=== PATIENT | female | born 1960 | race Caucasian/White ===

== ENCOUNTER → 2016-10-21 | Outpatient (CLI) | payer OTHER ==
[2016-10-21 13:27] LABS: BLOOD UREA NITROGEN 13 mg/dl (7-18); BUN/CREATININE RATIO 18.4 (10-20); CARBON DIOXIDE 29 mmol/L (21-32); CHLORIDE 105 mmol/L (98-107); CHOLESTEROL 248 mg/dl (0-200); GLUCOSE 87 mg/dl (70-99); SODIUM 140 mmol/L (136-145); TRIGLYCERIDES 265 mg/dl (0-150); VERY LOW DENSITY LIPOPROT CALC 53 mg/dl
[2016-10-21 13:29] LABS: CALCIUM 9.3 mg/dl (8.5-10.1)
[2016-10-21 13:31] LABS: CHOLESTEROL/HDL RATIO 5.3; HDL CHOLESTEROL 47 mg/dl; LDL CHOLESTEROL CALCULATED 148 mg/dl
== END | disposition home or self-care (01) ==
LOC: C.LABMFLN 09:35
PROVIDERS: ATTEND Family Medicine
DX: I10 Essential (primary) hypertension (principal); Z13.220 Encounter for screening for lipoid disorders

== ENCOUNTER 2017-11-14 05:04 | Inpatient (IN) | payer OTHER ==
[2017-11-06 11:34] VITALS: BMI 31.0
--- NOTE | 2017-11-06 12:12 | PAT Medication Instructions ---
Service Date November 06, 2017. Current Home Medication List Acetaminophen (Tylenol), 1,000 MG PO PRN Ibuprofen (Advil), 600 MG PO PRN Medication Instructions For Your Scheduled Surgery - Hold the following medications 10 days prior to surgery (per surgen): Ibuprofen (Advil), 600 MG PO PRN - Take the following medications the morning of surgery with a sip of water: Acetaminophen (Tylenol), 1,000 MG PO PRN (if needed, can be taken up to four hours before surgery) - Take the following medications as scheduled the night before surgery: Acetaminophen (Tylenol), 1,000 MG PO PRN (if needed) If you have any questions please call us at [phone] or [phone] or [phone]
[2017-11-06 12:41] LABS: BASO % 0.3 %; BASO ABS # 0.01 K/uL (0-0.2); EOS % 2.4 %; EOS ABS # 0.07 K/uL (0-0.5); HEMATOCRIT 41.1 % (37-47); HEMOGLOBIN 14.2 g/dL (12.0-16.0); LYMPH % 24.1 %; LYMPH ABS # 0.69 K/uL (1.2-3.4); MEAN CELL VOLUME 95.8 fL (80-100); MEAN CORPUSCULAR HEMOGLOBIN 33.1 pg (25-34); MEAN CORPUSCULAR HGB CONC 34.5 g/dl (32-36); MEAN PLATELET VOLUME 10.3 fL (7.4-10.4); MONO ABS # 0.23 K/uL (0.11-0.59); NEUT % 65.2 %; NEUT ABS # 1.86 K/uL (1.4-6.5); PLATELET COUNT 215 K/uL (130-400); RED CELL DISTRIBUTION WIDTH CV 12.4 % (11.5-14.5); RED CELL DISTRIBUTION WIDTH SD 42.9 fL (36.4-46.3); WHITE BLOOD COUNT 2.86 K/uL (4.8-10.8)
[2017-11-06 12:52] LABS: CALCIUM 9.7 mg/dl (8.5-10.1); CREATININE 0.75 mg/dl (0.60-1.20); POTASSIUM 4.3 mmol/L (3.5-5.1)
[2017-11-06 12:53] LABS: PTT PATIENT 24.4 SECONDS (21.0-31.0)
--- NOTE | 2017-11-06 13:04 | DIAGNOSTIC IMAGING REPORT ---
CHEST 2 VIEWS ROUTINE CLINICAL HISTORY: Preoperative chest. Degenerative arthritis. COMPARISON STUDY: No previous studies for comparison. FINDINGS: The cardiac and mediastinal contours are normal. There is no evidence of focal pulmonary consolidation. There is no evidence of failure. No pleural effusions are visualized.[ IMPRESSION: No active disease in the chest. Electronically signed by: Mynor Albert M.D. 11/06/2017 1:03 PM Dictated Date/Time: 11/06/2017 1:03 PM
--- NOTE | 2017-11-09 10:36 | HISTORY & PHYSICAL EXAMINATION ---
DATE OF ADMISSION: 11/14/2017 CHIEF COMPLAINT: Right knee pain. HISTORY OF PRESENT ILLNESS: A 57-year-old female from [place] who presents for treatment of her right knee. This all started back in August of this year when she was down in [place]. Not exactly sure what she did. She was playing some golf around the time and developed fairly acute onset of pain and difficulty straightening her right knee. She has seen several physicians down there; had an MRI done. She has continued to have persistent pain and discomfort. It is worse with weightbearing. She has limited motion. Cannot straighten her knee out. She is a pretty active lady and plays golf and ski's, but unable to do so due to her knee pain. She would like to have her knee fixed. PAST MEDICAL HISTORY: Skin cancer. PAST SURGICAL HISTORY: Previous surgeries include; 1. Tonsillectomy. 2. Tubal ligation. ALLERGIES: None. CURRENT MEDICATIONS: Motrin. SOCIAL HISTORY: A 57-year-old white female who lives in [place]. She is . Four children. One drink per day. FAMILY HISTORY: Significant for blood clots and skin cancer. REVIEW OF SYSTEMS: Negative for diabetes, neurologic problem, vascular problem, and bleeding disorders. No chest pain or shortness of breath. No history of DVT or PE. PHYSICAL EXAMINATION: GENERAL: Reveals a healthy, pleasant, middle-aged female. Looks in pretty good health. HEENT: Benign. NECK: Supple. No lymphadenopathy. LUNGS: Clear to auscultation. HEART: Has a regular rate and rhythm. ABDOMEN: Soft, nontender, nondistended. EXTREMITIES: Grossly neurovascularly intact except as follows: Examination of the right knee reveals the patient walks with a pretty stiff knee. She limps on this right side. She has got varus alignment to her knee. Moderate size knee effusion. Range of motion is 10-15 degrees, show full extension to about 50 degrees of flexion. She will not let me bend anymore than that. No pain with hip motion. X-RAYS: X-ray of the right knee reviewed. Shows advanced medial compartment arthritis. She has got complete loss of medial joint space. She has got osteophytes off the medial femoral condyle and medial tibial plateau. She may have a bit of a bone fragment in the intercondylar notch. MRI is reviewed from the outside. Shows significant arthritis in her knee, mostly in the medial side of the knee. Looks like she may have a loose body in the intercondylar notch area. ASSESSMENT: A 57-year-old white female with a 3-month history of markedly increased right knee pain, discomfort and limited motion, unresponsive to conservative treatment. The exact cause of her extreme stiffness is unclear per se. It may be that she has got a bone fragment stuck in her notch. In any case, just removing this is a bit unpredictable how much it is going to help her. Most definitive treatment for this patient is knee replacement. She has failed conservative care. PLAN: We will take her to the operating room and do a right total knee replacement. The risks and benefits of this procedure were explained to the patient including but not limited to DVT, PE, , infection, neurological injury, vascular injury, bleeding problem, pain, limited range of motion, stiffness, failure to relieve symptoms, incomplete relief of symptoms, need for further surgery in future, fracture, leg length inequality, nerve palsy, persistent pain, incomplete relief of symptoms, etc. The patient understands and desires to proceed. Informed consent was obtained. As far as discharge plan, she will likely be discharged home using [facility] home health program.
[2017-11-14] VITALS (11 sets, daily range): BP systolic 106–161; BP diastolic 62–97; PULSE 53–102; TEMP 36.3–36.8; O2SAT 94–99; Ht 170.2 cm; Wt 89.6 kg
[~2017-11-14] VITALS: Ht 170.2 cm; Wt 89.6 kg
[~2017-11-14 05:04] MED LIST: ACET-1256 PO; IBUP-1050 PO
[2017-11-14] MEDS ORDERED: BUPIVACAINE LIPOSOME 266 MG, BUPIVACAINE/EPINEPHRINE INJ 50 ML, SODIUM CHLORIDE 0.9% PF... INFIL SCH ×3 (06:00)
[2017-11-14] MEDS ORDERED: DEXAMETHASONE 4 MG TAB PO SCH (06:00)
[2017-11-14] MEDS ORDERED: CEFAZOLIN 2000MG IV PUSH 15 ML IV SCH (06:00)
[2017-11-14] MEDS ORDERED: LACTATED RINGER'S 1000ML IV SCH (06:00)
[2017-11-14] MEDS ORDERED: METOCLOPRAMIDE HCL 10 MG TAB PO SCH (06:00)
[2017-11-14] MEDS ORDERED: TRANEXAMIC ACID INJ 1,000 MG x 1 Bag Intra-Op IV SCH ×2 (06:00)
[2017-11-14] MEDS ORDERED: SCOPOLAMINE 1.5 MG TDSY TD SCH (06:00)
[2017-11-14] MEDS ORDERED: FAMOTIDINE 20 MG TAB PO SCH (06:00)
[2017-11-14] MEDS ORDERED: GABAPENTIN 600 MG PO SCH (06:00)
[2017-11-14] MEDS ORDERED: ACETAMINOPHEN 500 MG TAB PO SCH (06:00)
[2017-11-14] MEDS ORDERED: LACTATED RINGER'S 1000ML 500 ML IV SCH (06:00)
[2017-11-14] MEDS ORDERED: MIDAZOLAM HCL 1 MG/ML 2ML VIAL ONE ×2 (06:15→07:06)
[2017-11-14] MEDS ORDERED: FENTANYL CITRATE INJ 50 MCG/1 ML 2 ML VIAL ONE (06:16)
[2017-11-14] MEDS ORDERED: PROPOFOL IV EMULSION 10 MG/ML 20 ML VIAL ONE ×3 (06:17→08:07)
[2017-11-14] MEDS ORDERED: LIDOCAINE HCL 2% 2 ML VIAL (20MG/ML) ONE (06:17)
[2017-11-14] MEDS ORDERED: SODIUM CHLORIDE 0.9% PF 50 ML VIAL ONE (06:27)
[2017-11-14] MEDS ORDERED: BUPIVACAINE 0.25% 30 ML VIAL ONE (06:28)
[2017-11-14] MEDS ORDERED: BACITRACIN 50000 UNIT VIAL ONE (06:28)
[2017-11-14] MEDS ORDERED: BUPIVACAINE 0.5 % 5 MG/1 ML PF 10ML VIAL ONE (06:28)
[2017-11-14] MEDS ORDERED: BUPIVACAINE LIPOSOME 1/3% 266 MG/20 ML VIAL ONE (06:28)
[2017-11-14] MEDS ORDERED: EpINEphrine INJ 1MG/ML AMP 1 MG/ML AMP ONE (06:29)
--- NOTE | 2017-11-14 06:48 | History & Physical Bridge Note ---
H&P Re-Evaluation Bridge Note: I have examined the patient, reviewed the History & Physical and in the interval since the performance of the History & Physical I have noted the following changes of clinical significance: No changes noted
[2017-11-14] MEDS ORDERED: ONDANSETRON INJ 2 MG/ML 2 ML VIAL ONE (07:20)
[2017-11-14] MEDS ORDERED: DEXAMETHASONE SOD INJ 4 MG/ML VIAL ONE (07:27)
[2017-11-14] MEDS ORDERED: EpHEDrine SULFATE INJ 50 MG/ML AMP ONE (07:27)
[2017-11-14] MEDS ORDERED: EpHEDrine SULFATE INJ 50 MG/ML AMP IV PRN (07:30)
[2017-11-14] MEDS ORDERED: ATROPINE SULFATE 0.1 MG/ML 5ML SYR IV PRN (07:30)
[2017-11-14] MEDS ORDERED: FENTANYL CITRATE INJ 50 MCG/1 ML 2 ML VIAL IV PRN (07:30)
[2017-11-14] MEDS ORDERED: ONDANSETRON INJ 2 MG/ML 2 ML VIAL IV PRN ×2 (07:30→08:45)
--- NOTE | 2017-11-14 08:40 | [facility] Post Operative Brief Note ---
Immediate Operative Summary Operative Date November 14, 2017. Pre-Operative Diagnosis Right Knee Degenerative Joint Disease Post-Operative Diagnosis Same as preop Procedure(s) Performed Right Total Knee Arthroplasty Surgeon Dr. Gallagher Plastic Shaper Surgeon(s) Alfonzo Gamino PA-C Estimated Blood Loss 50 ml Findings Consistent with Post-Op Diagnosis Fluids (cc crystalloids) 1400 cc Specimens A. Right Knee Bone and Tissue Drains None Anesthesia Type MAC Spinal Regional Complication(s) none Disposition Accompanied Pt To Recover: no Disposition: Recovery Room / PACU Overlapping Procedure I was present for: the critical portions of procedure. I was immediately available: during the entire case
[2017-11-14] MEDS ORDERED: BISACODYL 10 MG SUPP PR PRN (08:45)
[2017-11-14] MEDS ORDERED: ALUMINUM/MAGNESIUM/SIMETH (MAALOX MAX) 30 ML UDC PO PRN (08:45)
[2017-11-14] MEDS ORDERED: DiphenhydrAMINE HCL 50 MG/ML VIAL IV PRN (08:45)
[2017-11-14] MEDS ORDERED: SILVER SULFADIAZINE 1% CR 50 GM JAR EXT PRN (08:45)
[2017-11-14] MEDS ORDERED: MAGNESIUM HYDROXIDE SUSP 30 ML UDC PO PRN (08:45)
[2017-11-14] MEDS ORDERED: MoRPHine SULFATE 2 MG/ML CARP IV PRN (08:45)
[2017-11-14] MEDS ORDERED: ZOLPIDEM TARTRATE 5 MG TAB PO PRN (08:45)
[2017-11-14] MEDS ORDERED: METOCLOPRAMIDE HCL INJ 5 MG/ML 2 ML VIAL IV PRN (08:45)
--- NOTE | 2017-11-14 09:05 | DIAGNOSTIC IMAGING REPORT ---
RIGHT KNEE 2 VIEWS History: Right total knee arthroplasty. Degenerative arthritis. Postop. FINDINGS: The patient is status post a right total knee arthroplasty. The hardware is intact. No fracture or dislocation. Skin jorden are in place. IMPRESSION: Right total knee arthroplasty. No evidence for hardware complication. Electronically signed by: Tobias Lr M.D. 11/14/2017 9:04 AM Dictated Date/Time: 11/14/2017 9:03 AM
--- NOTE | 2017-11-14 09:32 | OPERATIVE REPORT ---
DATE OF OPERATION: 11/14/2017 SURGEON: Alexis Gallagher MD X RAY NURSE: KARSON Strickland PREOPERATIVE DIAGNOSIS: Right knee degenerative joint disease. POSTOPERATIVE DIAGNOSIS: Right knee degenerative joint disease. PROCEDURE PERFORMED: Right cemented posterior stabilized total knee arthroplasty. COMPLICATIONS: None. ESTIMATED BLOOD LOSS: 50 mL. FLUID REPLACEMENT: 1400 mL crystalloid fluid replacement. TOURNIQUET TIME: 53 minutes at 300 mmHg. ANESTHESIA: Spinal with adductor canal block. DRAINS: None. SPECIMENS: Right knee sent for pathology. OPERATIVE INDICATIONS: The patient is a 57-year-old very active female who started having acute onset of right knee pain about 3-4 months ago down in [place]. She had been through conservative care down there with a several different medicines as well as an attempt at injection. She continued to have persistent pain and discomfort really limiting her activities. She developed quite a bit of stiffness and really could not hardly straighten her knee or bend it much due to pain. She is a very active skier and is having trouble even walking. X-rays revealed advanced medial compartment arthritis. The patient elects to proceed with surgical treatment. OPERATIVE FINDINGS: Operative findings revealed advanced right knee DJD. She had pretty extensive grade 4 change of the medial compartment as well as the patellofemoral compartment. Not a lot of eburnation, but complete wear to the bone. Moderate-sized joint effusion. She has varus alignment to her knee. OPERATIVE IMPLANTS: Operative implants consisted of: 1. A Biomet Vanguard size 67.5 right posterior stabilized femoral component. 2. A Biomet size 71 tibial tray. 3. A 10-mm posterior stabilized polyethylene insert. 4. A 31 x 8 all poly patella. OPERATIVE PROCEDURE: The patient was taken to the operating room, identified and placed on the operating table in supine position. All contact areas were appropriately padded. IV antibiotics were provided by the anesthesia team. Spinal anesthetic and adductor canal block had been provided in the holding area. A Gan catheter was placed in sterile fashion. A right thigh tourniquet was then placed. The right lower extremity was then prepped and draped in usual sterile fashion. The right leg was elevated and exsanguinated with Esmarch and tourniquet was placed at 300 mmHg. An anterior approach of the right knee was then performed through a longitudinal incision centered over the patella. Sharp dissection was carried through subcutaneous tissue down to the level of the extensor mechanism. A medial parapatellar arthrotomy incision was made. Some subperiosteal dissection was carried out medially. The fat pad resected from beneath the patellar tendon. The lateral patellofemoral ligament was released. The patella was everted and the knee was flexed. The osteophytes were taken off the distal femur. The ACL and PCL were released from the distal femur and the tibia subluxated anteriorly. The external tibial alignment jig was then placed in the anterior face of the tibia. It was adjusted about 14 mm medially. A proximal tibial cut was made to remove about 2 mm of bone from the most deficient aspect of the medial tibial plateau. The tibia sized to a size 71. Attention was then drawn to the femur. The distal femur was entered with a sharp drill. The intramedullary canal was suctioned. A right 5-degree valgus cutting guide was placed. The distal femoral cutting block was pinned in place. A distal femoral cut was made to take an additional 3 mm of bone off the distal femur. The femur was then sized to a size 67.5. I downsized this almost an entire size due to the narrow medial and lateral dimensions. The AP cutting block was pinned parallel to the epicondylar axis, which was 3 degrees of external rotation. The anterior cut, anterior chamfer, posterior cut, posterior chamfer cuts were made. A box cutting guide was placed and adjusted slight lateral and the box cut was made. The knee was flexed. The remnants of the medial and lateral menisci were excised. The osteophytes were taken off the posterior aspect of the femur. A trial femoral component was placed. The tibial tray was pinned in maximum external rotation. A drill and stem punch were used to create defect in the proximal tibia for the tibial tray. The knee was then trialed and the 10 mm insert fit most appropriately. Attention was then drawn to the patella. The patella was cleaned of all soft tissues. Patella thickness measured 20 mm in thickness and was cut down to 12. It was sized to a size 31 patella. Lug holes were drilled for 31 patella. Lateral osteophyte was removed. Patella button was placed. The knee was taken through range of motion and patella tracked nicely with no thumbs test. Attention was then drawn toward placement of permanent components. All trial components were removed. A bone plug was placed in the distal femur to limit blood loss. A double batch of Palacos G cement was mixed. A right size 67.5 posterior stabilized femoral component, size 71 tibial tray, 10 mm posterior stabilized polyethylene insert, and a 31 x 8 all poly patella were then cemented in place. The knee was brought in full extension until the cement had hardened. A final cement check was then performed. Pericapsular tissues were injected with a total of 100 mL of combination of 20 mL Exparel, 30 mL of normal saline, 50 mL of 0.25% Marcaine with epinephrine. The patient did receive 1 g of tranexamic acid. The tourniquet was then let down for final tourniquet time of 53 minutes. Hemostasis was assured with use of electrocautery. The wound was once again irrigated. The extensor mechanism was then closed with a combination of #1 PDS suture and #1 Vicryl suture in a [id number] fashion. The extensor mechanism was checked and found to be intact. The subcutaneous tissues were then closed with #2 Dexon suture in a buried interrupted fashion and the skin was closed with skin jorden. The leg was then cleaned and dried and a sterile dressing of Xeroform, 4 x 4s, sterile cast padding, and Julito bandage were applied. The patient was then transferred to the recovery room in stable condition. The patient tolerated the procedure well with no complication. All needle and sponge counts were correct at the end of the operation. I attest to the content of the Intraoperative Record and any orders documented therein. Any exception s are noted below.
--- NOTE | 2017-11-14 09:51 | Anesthesiology Progress Note ---
Anesthesia Post Op Note Date & Time November 14, 2017 at 09:51 Vital Signs Pain Intensity: 0 Vital Signs Past 12 Hours Date Time Temp Pulse Resp B/P (MAP) Pulse Ox O2 Delivery O2 Flow Rate FiO2 11/14/17 09:30 36.6 77 14 129/74 98 Nasal Cannula 2 11/14/17 09:20 36.6 64 14 134/79 98 Nasal Cannula 2 11/14/17 09:10 36.6 66 14 130/77 97 Nasal Cannula 2 11/14/17 09:00 63 14 133/76 100 Oxymask 10 11/14/17 08:50 87 14 126/78 100 Oxymask 10 11/14/17 08:43 36.7 82 14 124/77 100 Oxymask 10 11/14/17 05:55 36.7 79 18 161/97 97 Room Air Notes Mental Status: alert / awake / arousable, participated in evaluation Pt Amnestic to Procedure: Yes Nausea / Vomiting: adequately controlled Pain: adequately controlled Airway Patency, RR, SpO2: stable & adequate BP & HR: stable & adequate Hydration State: stable & adequate Neuraxial Anesthesia: was administered, sensory block is resolving Anesthetic Complications: no major complications apparent
[2017-11-14] MEDS: D5W AND 1/2NSS + 20MEQ KCL 1,000 ML IV SCH ×2 (10:52→20:40)
[2017-11-14] MEDS: KETOROLAC TROMETHAMINE 30 MG/ML VIAL IV. SCH ×2 (12:18→18:28)
[2017-11-14] MEDS: FERROUS GLUCONATE 324 MG TAB PO SCH ×2 (12:44→18:27)
[2017-11-14] MEDS: ACETAMINOPHEN 500 MG TAB PO SCH ×2 (13:58→22:18)
[2017-11-14] MEDS: OXYCODONE HCL IR 5 MG TAB (IMMEDIATE RELEASE) PO PRN ×2 (13:59→22:21)
[2017-11-14] MEDS ORDERED: MoRPHine SULFATE 4 MG/ML 1 ML CARP\\VIAL IV PRN (14:00)
--- NOTE | 2017-11-14 14:01 | PROGRESS NOTE ---
DATE: 11/14/2017 SUBJECTIVE: A 57-year-old white female postop from right knee replacement. She is doing well. Just starting to get some pain in her leg. No chest pain or shortness of breath. Not feeling dizzy or lightheaded. OBJECTIVE: VITAL SIGNS: Temperature 36.3. Vital signs stable. GENERAL: Reveals a healthy, pleasant middle-aged female. She is sitting up in bed and talking to her daughter. She looks comfortable. LUNGS: Clear to auscultation. HEART: Has a regular rate and rhythm. ABDOMEN: Soft, nontender, nondistended. EXTREMITIES: Grossly neurovascularly intact except as follows: Examination of the right leg reveals the leg to be well aligned. Dressing is clean, dry and intact. Patient can dorsiflex and plantarflex her foot appropriately. She is neurologically intact. X-RAYS: X-rays of the right knee from recovery room reviewed. It shows a cemented posterior stabilized total knee arthroplasty, the components look to be in good position. No signs of problems. ASSESSMENT: A 57-year-old white female postoperative from a right knee replacement, doing well. Pain is controlled. She is neurologically intact. PLAN: 1. DVT prophylaxis including thigh-high TEDs, SCDs, and aspirin twice a day. 2. PT/OT. Weight bear as tolerated. Right total knee protocol. 3. Pain control. Doing well with current pain regimen. 4. IV antibiotics x24 hours. 5. Disposition: Plan to discharge to home with some home health once adequately recovered.
[2017-11-14] MEDS ORDERED: TRANEXAMIC ACID INJ 1,000 MG in SODIUM CHLORIDE 0.9% 100ML 100 ML IV ONE (14:30)
[2017-11-14] MEDS: CEFAZOLIN IV 2,000 MG in SYRINGE 0 ML IV SCH ×2 (14:36→22:18)
[2017-11-14] MEDS: CHECK SCOPOLAMINE PATCH PLACEMENT SCH (15:44)
[2017-11-14] MEDS ORDERED: MoRPHine SULFATE 2 MG/ML CARP ONE (16:56)
[2017-11-14] MEDS: ASPIRIN 81 MG ECTAB PO SCH (20:56)
[2017-11-14] MEDS: TAPENTADOL ER 50 MG TABCR PO SCH (20:56)
[2017-11-14] MEDS: DOCUSATE SODIUM 100 MG CAP PO SCH (20:56)
[2017-11-14] MEDS: SENNA 8.6 MG TAB PO SCH (20:57)
[2017-11-15] MEDS: KETOROLAC TROMETHAMINE 30 MG/ML VIAL IV. SCH ×5 (00:01→23:19)
[2017-11-15] MEDS: CHECK SCOPOLAMINE PATCH PLACEMENT SCH ×4 (00:02→23:19)
[2017-11-15 03:57] VITALS: BP 102/64; PULSE 63; TEMP 36.4; O2SAT 97
[2017-11-15] MEDS: ACETAMINOPHEN 500 MG TAB PO SCH ×3 (06:18→20:39)
[2017-11-15] MEDS: D5W AND 1/2NSS + 20MEQ KCL 1,000 ML IV SCH (06:20)
[2017-11-15 06:44] LABS: HEMOGLOBIN 11.3 g/dL (12.0-16.0); MEAN CORPUSCULAR HEMOGLOBIN 32.6 pg (25-34); MEAN CORPUSCULAR HGB CONC 33.2 g/dl (32-36); MEAN PLATELET VOLUME 9.4 fL (7.4-10.4); PLATELET COUNT 172 K/uL (130-400); RED CELL DISTRIBUTION WIDTH CV 12.6 % (11.5-14.5); RED CELL DISTRIBUTION WIDTH SD 44.5 fL (36.4-46.3); WHITE BLOOD COUNT 4.62 K/uL (4.8-10.8)
[2017-11-15 07:15] LABS: CALCIUM 8.4 mg/dl (8.5-10.1); CREATININE 0.81 mg/dl (0.60-1.20)
[2017-11-15] MEDS ORDERED: ACET-24 PO (07:46)
[2017-11-15] MEDS ORDERED: RXC5 PO (07:46)
[2017-11-15] MEDS ORDERED: ASPI-320 PO (07:46)
--- NOTE | 2017-11-15 07:47 | Discharge Instructions ---
Discharge Instructions Date of Service November 15, 2017. Admission Reason for Admission: Right Knee Degenerative Joint Disease Discharge Discharge Diagnosis / Problem: Right Knee Replacement Discharge Goals Goal(s): Decrease discomfort, Improve function, Increase independence, Improve disease control, Therapeutic intervention Activity Recommendations Activity Limitations: per Instructions/Follow-up section Weightbearing Status: Right weightbearing . Instructions / Follow-Up Instructions / Follow-Up ACTIVITY RECOMMENDATIONS: Physical Therapy: * You will go to physical therapy three times each week for four to six weeks after your surgery in order to regain your knee range of motion and to retrain your knee to work properly. * It is just as important to make sure you are getting your knee perfectly straight as it is to regain your knee bend. * Taking a pain pill an hour before therapy can help you have a more productive and comfortable therapy session. Home Exercise: * You were shown a series of exercises (heel props, heel slides, etc.) in the hospital. Do these exercises three to four times each day including the exercises you were shown in physical therapy. Walking: * Get up and walk several times each day. For the first four weeks, try not to stand or walk for more than one hour at a time. If you do stand or walk for more than one hour, you will not hurt anything, but your knee and leg will likely swell. * As you feel comfortable, you may change from the walker or crutches to a cane and then to independent walking. MEDICATIONS: New Medicine: * You will likely be taking one or more of these medications: 1. Oxycodone - A quick and shorter-acting pain medication. Take one to two tablets every four to six hours to lessen your pain. 2. Aspirin - Thins your blood to lessen the chance of forming a blood clot. * The most common side effects of pain medicine and iron are nausea and constipation. If nausea or constipation is too much of a problem or if you have any questions about your new medicines or doses, call [facility] at . We will try to help you manage these issues. VERY IMPORTANT TO READ AND REVIEW" Pain: * The immediate post-operative period after knee replacement surgery is often quite painful. * You are given a prescription for pain medicine. You should take it, as directed, when you need it, especially before physical therapy and before going to bed. Pain that interferes with sleep is very common and can last several months. * You will likely need pain medicine for the first four to six weeks. It will not stop all of the pain. The pain will lessen and as you feel better, you may change to milder pain medicine such as Tylenol. * The most common side effects of pain medicine are nausea and constipation, so don't take more than you need. SPECIAL CARE INSTRUCTIONS: TEDs/Elastic Stockings: * The white elastic stockings help limit swelling and prevent blood clots from forming in your legs. The more you wear them, the more they work. * Wear them for six weeks after knee replacement surgery and four weeks after partial knee replacement. Prevention of Infection: * Take antibiotics one hour before any dental cleaning, dental work, urological procedure, gastrointestinal procedure or any invasive surgery in order to prevent your new joint from getting infected. * You may get the antibiotics from the doctor performing the procedure or you may call our office at before and we will call in a prescription to the pharmacy of your choice. Things to Watch For: * Drainage from the incision site that occurs more than one week after your surgery. * Severely increased knee/leg pain or swelling. * Increased redness at the incision site. * Fever above 102 degrees Fahrenheit. * Unusual chest pain or shortness of breath. * Unusual pain or burning with urination. Call [facility] at with any of the above problems or if you have any questions about your medicines or recovery. FOLLOW UP VISIT: Make an appointment to see your doctor for approximately two weeks after surgery for a progress check and staple removal by calling the office at . Current Hospital Diet Patient's current hospital diet: Regular Diet Discharge Diet Recommended Diet: Regular Diet Procedures Procedures Performed: Right Total Knee Arthroplasty Pending Studies Studies pending at discharge: no Medical Emergencies . Who to Call and When: Medical Emergencies: If at any time you feel your situation is an emergency, please call [phone] immediately. . Non-Emergent Contact Non-Emergency issues call your: Surgeon . "Provider Documentation" section prepared by Alexis Gallagher. .
[2017-11-15 07:50] VITALS: BP 122/62; PULSE 59; TEMP 36.6; O2SAT 99
--- NOTE | 2017-11-15 07:55 | Anesthesiology Progress Note ---
Anesthesia Post Op Note Date & Time November 15, 2017 at 07:54 Vital Signs Pain Intensity: 0.0 Vital Signs Past 12 Hours Date Time Temp Pulse Resp B/P (MAP) Pulse Ox O2 Delivery O2 Flow Rate FiO2 11/15/17 03:57 36.4 63 16 102/64 (77) 97 Room Air 11/15/17 00:05 Room Air 11/14/17 23:42 36.7 59 16 106/66 (79) 96 Room Air Notes Mental Status: alert / awake / arousable, participated in evaluation Pt Amnestic to Procedure: Yes Nausea / Vomiting: adequately controlled Pain: adequately controlled Airway Patency, RR, SpO2: stable & adequate BP & HR: stable & adequate Hydration State: stable & adequate Neuraxial Anesthesia: sensory block resolved Anesthetic Complications: no major complications apparent
[2017-11-15] MEDS: TAPENTADOL ER 50 MG TABCR PO SCH ×2 (09:19→20:39)
[2017-11-15] MEDS: DOCUSATE SODIUM 100 MG CAP PO SCH ×2 (09:20→20:39)
[2017-11-15] MEDS: OXYCODONE HCL IR 5 MG TAB (IMMEDIATE RELEASE) PO PRN ×4 (09:20→23:27)
[2017-11-15] MEDS: ASPIRIN 81 MG ECTAB PO SCH ×2 (09:20→20:39)
[2017-11-15] MEDS: MULTIVITAMIN TAB PO SCH (09:20)
[2017-11-15] MEDS: PANTOprazole SOD 40 MG TAB PO SCH (09:20)
[2017-11-15] MEDS: FERROUS GLUCONATE 324 MG TAB PO SCH ×3 (09:21→17:26)
[2017-11-15 09:52] VITALS: BP 119/70; PULSE 55
[2017-11-15 11:38] VITALS: BP 118/78; PULSE 52; TEMP 36.6; O2SAT 96
--- NOTE | 2017-11-15 13:35 | PROGRESS NOTE ---
DATE: 11/15/2017 SUBJECTIVE: This is a 57-year-old white female, postop day 1 from right knee replacement, doing pretty well. She did get lightheaded just recently in her room and they laid her down. Denies any chest pain or shortness of breath. Not feeling dizzy or lightheaded. She is no longer feeling lightheaded. OBJECTIVE: VITAL SIGNS: Temperature 36.6. Vital signs stable. PHYSICAL EXAMINATION: GENERAL: Physical examination shows a pleasant, middle-aged female. She is lying in bed, looks pretty comfortable. She has good color to her. She does not look pale. LUNGS: Clear to auscultation. HEART: Regular rate and rhythm. ABDOMEN: Soft, nontender, nondistended. EXTREMITY EXAMINATION: Grossly neurovascularly intact except as follows: Examination of the right leg reveals the leg to be well-aligned. She has difficulty doing a straight leg raise. She can dorsiflex and plantarflex her foot appropriately. She is neurologically intact. LABORATORIES: Hemoglobin 11.3. Hematocrit 34.0. Electrolytes are stable. ASSESSMENT: This is a 57-year-old white female, postop day 1 from right knee replacement, doing reasonably well. She had a bit of what sounds like an orthostatic or hypotension episode, but doing better now. Pain is reasonably well-controlled. PLAN: 1. DVT prophylaxis including thigh-high TEDs, SCDs, and aspirin twice a day. 2. PT/OT. Weightbear as tolerated. Right total knee protocol. 3. Pain control, doing reasonably well with current pain regimen. 4. Disposition: She is hoping to be discharged home with some home health once adequately recovered.
[2017-11-15 15:09] VITALS: BP 110/73; PULSE 62; TEMP 37; O2SAT 96
[2017-11-15] MEDS: SENNA 8.6 MG TAB PO SCH (20:39)
[2017-11-15 23:29] VITALS: BP 132/81; PULSE 58; TEMP 36.9; O2SAT 98
[2017-11-16] MEDS: OXYCODONE HCL IR 5 MG TAB (IMMEDIATE RELEASE) PO PRN ×2 (03:31→12:40)
[2017-11-16] MEDS: ACETAMINOPHEN 500 MG TAB PO SCH (05:47)
[2017-11-16] MEDS: KETOROLAC TROMETHAMINE 30 MG/ML VIAL IV. SCH (05:48)
[2017-11-16] MEDS: CHECK SCOPOLAMINE PATCH PLACEMENT SCH (08:00)
--- NOTE | 2017-11-16 08:01 | PROGRESS NOTE ---
DATE: 11/16/2017 SUBJECTIVE: A 57-year-old white female postop day 2 from right knee replacement. She is doing pretty well. Pain is better this morning. No chest pain or shortness of breath. Not feeling dizzy or lightheaded. OBJECTIVE: VITAL SIGNS: Temperature 36.9. Vital signs stable. GENERAL: Reveals a pleasant, middle-aged female. She is lying in bed this morning and looks comfortable. EXTREMITIES: Examination of the right leg reveals the leg to be well aligned. Dressing is clean, dry, and intact. Calf is soft and supple. She is neurologically intact. ASSESSMENT: A 57-year-old white female, postop day 2 from right knee replacement, doing well. Pain is controlled. She is neurologically intact. PLAN: 1. DVT prophylaxis including thigh-high TEDs, SCDs, and aspirin twice a day. 2. PT/OT. Weight bear as tolerated per right total knee protocol. 3. Pain control, doing pretty well with current pain regimen. 4. Disposition. Plan to discharge home with home health later today.
[2017-11-16 08:04] VITALS: BP 114/74; PULSE 57; TEMP 36.7; O2SAT 96
[2017-11-16 08:40] VITALS: O2SAT 96
[2017-11-16] MEDS: FERROUS GLUCONATE 324 MG TAB PO SCH ×2 (08:54→12:37)
[2017-11-16] MEDS: MULTIVITAMIN TAB PO SCH (08:54)
[2017-11-16] MEDS: ASPIRIN 81 MG ECTAB PO SCH (08:54)
[2017-11-16] MEDS: TAPENTADOL ER 50 MG TABCR PO SCH (08:54)
[2017-11-16] MEDS: PANTOprazole SOD 40 MG TAB PO SCH (08:54)
[2017-11-16] MEDS: DOCUSATE SODIUM 100 MG CAP PO SCH (08:54)
[2017-11-16 09:05] VITALS: BP 114/74; PULSE 57; TEMP 36.7; O2SAT 96
== END 2017-11-16 14:15 | disposition home health service (06) | DRG 470 ==
LOC: C.ACU 05:04 → C.3E 06:30 → ENRESERV 09:18
PROVIDERS: ADMIT Orthopaedic Surgery Sports Medicine; ATTEND Orthopaedic Surgery Sports Medicine
PROC: 0SRC0J9 Replacement of Right Knee Joint with Synthetic Substitute, Cemented, Open Approach (ICD-10-PCS; principal; 2017-11-14 07:00)
DX: M17.11 Unilateral primary osteoarthritis, right knee (principal); Z79.1 Long term (current) use of non-steroidal anti-inflammatories (NSAID); Z85.828 Personal history of other malignant neoplasm of skin; Z82.49 Family history of ischemic heart disease and other diseases of the circulatory system; Z80.8 Family history of malignant neoplasm of other organs or systems

== ENCOUNTER → 2018-02-01 | Outpatient (CLI) | payer OTHER ==
[~2018-02-01] MED LIST changes: -ACET-1256 PO; +ACET-24 PO; +ASPI-320 PO; +RXC5 PO
== END | disposition home or self-care (01) ==
LOC: C.LABMFLN 10:25
PROVIDERS: ATTEND Physician Assistant
DX: R35.0 Frequency of micturition (principal); R10.9 Unspecified abdominal pain

== ENCOUNTER 2020-04-23 12:11 | Observation (INO) ==
--- NOTE | 2020-04-01 13:29 | Anesthesiology Consultation ---
Date of Service April 01, 2020 Assessment & Plan (1) Encounter for pre-operative examination: Chart Review Chart Review: Pending: Refer to Additional Notes / Consult section (pending 04/03 heme appt and preop Covid testing ) and Patient NOT seen in Pre Admission Testing Awaiting follow up visit with heme scheduled 04/03 to ensure patient is stable to proceed with surgery (Pt follows with Dr. Jefferson Onofre in [place]). -Preop PRP and PT/INR/PTT ordered for AM of surgery. Per nursing interview 04/01/20, pt travels to [place], [place] to help care for chronically ill father- stays at brother's house. Does wear mask and social distances in public. Pt is returning to [place] 04/01/20. No known Covid positive contacts or Covid related symptoms. Pt scheduled for preop Covid testing 04/09/20 (pt will be home x 8 days at time of testing and in [place] 13 days at time of surgery) Seen by shay 03/17/20= seen for low WBC ct- was patient's first visit. Additional labs ordered by shay. Feels WBC ct related to B 12 deficiency. Possibly autoimmune/idiopathic as well. It is highly unlikely this will preclude her from having her knee replacement surgery. Pt scheduled for follow up on 04/03/20 History Surgery Operation Date: 04/14/20 10:40 Proposed Procedures p Left Total Knee Arthroplasty - Alexis Gallagher MD Height/Weight Height: 5 ft 7 in Weight: 85.729 kg Allergies Allergy/AdvReac Type Severity Reaction Status Date / Time No Known Allergies Allergy Verified 04/01/20 11:09 Medications Home Medications Medication Instructions Recorded Confirmed Last Taken acetaminophen [Tylenol 8 Hour] 650 mg PO Q12H PRN 01/13/20 04/01/20 Unknown amlodipine 2.5 mg PO PM 01/13/20 04/01/20 Unknown ibuprofen [Motrin] 400 mg PO BID PRN 04/01/20 04/01/20 Unknown Past Medical History Medical History BCC (basal cell carcinoma) Removed. Benign essential hypertension History of DVT of lower extremity left leg---skiing accident> TEEN- NO ISSUES SINCE Hx of migraine headaches Hyperlipidemia no medications currently -- monitoring Neutropenia following with Hematology/Oncology (Dr Onofre) Osteoarthritis Overactive bladder Past Family History Family History Other No family history of adverse response to anesthesia Past Surgical History Surgical History Basal cell carcinoma of shoulder frozen off History of basal cell carcinoma (BCC) excision off of face History of bilateral tubal ligation History of bone marrow biopsy 03/27/20 Dr. Onofre's office in [place] History of colonoscopy History of dilatation and curettage History of endometrial ablation History of surgical removal of lesion removal of birthmark from leg History of tonsillectomy and adenoidectomy History of tooth extraction History of total right knee replacement (TKR) History of wisdom tooth extraction Social History Smoking Status: Former smoker Do You Dip or Chew Tobacco: No Smoking End Date: while in college only Hx Alcohol Use: Yes Alcohol type: wine alcohol intake frequency: a few times a week Hx Substance Use: No substance use type: does not use Testing Laboratory Results Laboratory Tests 03/18/20 10:15 WBC 2.22 L Hgb 13.3 Hct 40.2 Plt Count 218 Electrocardiogram Date: 01/16/20 Findings: + SB @ (59) Otherwise normal EKG. Chest X-Ray Date: 01/16/20 Findings: + NAD
--- NOTE | 2020-04-08 00:04 | History and Physical Report ---
DATE OF ADMISSION: 04/14/2020 CHIEF COMPLAINT: Persistent left knee pain and discomfort. HISTORY OF PRESENT ILLNESS: A 59-year-old female who presents now for surgical treatment of her left knee. She has a long history of knee problems and underwent a right knee replacement back in 2018. She has done well with this. She struggled with motion initially, but has done well and it is working well now. Over the past 2 years, she has developed increased pain and discomfort in her left knee. We have been aspirating and injecting her knee intermittently which gives her some relief for about a month. She is having difficulty getting back to any degree of activity. She describes global pain in her knee. The shots help temporarily, but not long enough. She cannot play golf like she would like to. She cannot walk any distance. She would like to have this knee fixed. PAST MEDICAL HISTORY: Significant for, 1. Hypertension, 2. Osteoarthritis. 3. Skin cancer. 4. B12 deficiency. PAST SURGICAL HISTORY: Include right knee replacement on 11/14/2017. ALLERGIES: None. CURRENT MEDICATIONS: 1. Albuterol inhaler. 2. Amlodipine. 3. Naproxen. SOCIAL HISTORY: Significant for a 59-year-old female. She lives in [place]. She is . She spends quite a bit of her gonzales in [place]. Five drinks per week. Does not smoke. FAMILY HISTORY: Noncontributory. REVIEW OF SYSTEMS: Negative for diabetes, neurologic problems, vascular problems, bleeding disorders. No chest pain or shortness of breath. No history of DVT or PE. No known bleeding problems. PHYSICAL EXAMINATION: GENERAL: Shows a pleasant, middle-aged female. Looks to be in excellent health. HEENT: Benign. NECK: Supple, no lymphadenopathy. LUNGS: Clear to auscultation. HEART: Has a regular rate and rhythm. ABDOMEN: Soft, nontender, nondistended. EXTREMITIES: Grossly neurovascularly intact except as follows: Examination of the left knee reveals the patient walks with a varus alignment to her knee. She does limp on this side. She is tender over the medial joint line. Small to moderate sized knee effusion. Range of motion is about 5 degrees short of full extension and about 100 degrees of flexion. Pretty stiff in flexion. No pain with hip motion. Examination of the right knee reveals a well-healed incision. Range of motion is 0-120. Good straight leg raise. No instability. X-RAYS: X-rays of the left knee were reviewed. It shows advanced left knee medial compartment arthritis. This has progressed significantly over the past year. She has got complete loss of her joint space. She has got osteophytes laterally as well. ASSESSMENT: A 59-year-old female now 2+ years out from a right knee replacement with advanced left knee degenerative joint disease. This has progressed significantly over the past year and limiting her activities. She would like to have it fixed. PLAN: We are going to take her to the operating room and do a left total knee replacement. The risks and benefits of this procedure were explained to the patient including but not limited to DVT, PE, , infection, neurological injury, vascular injury, bleeding problem, pain, limited range of motion, stiffness, failure to relieve her symptoms, incomplete relief of symptoms, need for further surgery in future, fracture, leg length inequality, stiffness, etc. The patient understands and desires to proceed. Informed consent was obtained. On preoperative workup, it did show a low white blood cell count. She is currently undergoing evaluation by production worker and had bone marrow biopsy. The exact results of that are pending. Assuming that looks okay, we will proceed with surgery. If there is further intervention needed, we will have to defer to the production worker. As far as discharge plans, she is planning to be discharged to home and do outpatient therapy. She knows to hold her NSAIDs 2 weeks preop. MARIA
[~2020-04-23 12:11] MED LIST changes: -ACET-24 PO; +ACETAMINOPHEN 500 MG TAB PO SCH; -ASPI-320 PO; +BUPIVACAINE 0.5 % 5 MG/1 ML PF 10ML VIAL ONE; +BUPIVACAINE LIPOSOME/PF 266 MG, BUPIVACAINE/EPINEPHRINE 50 ML, SODIUM CHLORIDE 0.9% 30 ... INFIL SCH; +FAMOTIDINE 20 MG TAB PO SCH; +GABAPENTIN 600 MG DOSE PO SCH; -IBUP-1050 PO; +LR 500ML BOLUS, THEN 15ML/HR IV SCH; +LR 60ML/HR IV SCH; +METOCLOPRAMIDE HCL 10 MG TABLET PO SCH; +ROPIVACAINE 0.5% 5 MG/ML 30 ML VIAL ONE; -RXC5 PO; +Scopolamine CHECK PATCH PLACEMENT SCH; +TRANEXAMIC ACID 1,000 MG **IV Intra-op IV SCH; +ceFAZolin 2000MG 2,000 MG/15 ML SYR IV SCH
--- NOTE | 2020-04-23 13:22 | History & Physical Bridge Note ---
Date of Service April 23, 2020 History & Physical Bridge Note I have examined the patient, reviewed the History & Physical and in the interval since the performance of the History & Physical I have noted the following changes of clinical significance: no changes noted
[2020-04-23] MEDS ORDERED: SODIUM CHLORIDE 0.9% PF 50 ML VIAL ONE (14:20)
[2020-04-23] MEDS ORDERED: BACITRACIN INJ 50,000 UNIT VIAL ONE (14:20)
[2020-04-23] MEDS ORDERED: BUPIVACAINE/EPINEPHRINE 0.25% 1:200,000 30 ML VIAL ONE (14:20)
[2020-04-23] MEDS ORDERED: MIDAZOLAM HCL 1 MG/ML 2ML VIAL ONE (14:40)
[2020-04-23] MEDS ORDERED: BUPIVACAINE LIPOSOME 1.3% 266 MG/20 ML VIAL ONE (14:46)
[2020-04-23] MEDS ORDERED: BUPIVACAINE 0.25% 30 ML VIAL ONE (14:52)
[2020-04-23] MEDS ORDERED: ONDANSETRON INJ 2 MG/ML 2 ML VIAL IV PRN ×2 (14:54→18:33)
[2020-04-23] MEDS ORDERED: ATROPINE SULFATE 0.1 MG/ML 10ML SYR IV PRN (14:54)
[2020-04-23] MEDS ORDERED: fentaNYL citrate 100 MCG/2 ML VIAL IV PRN (14:54)
[2020-04-23] MEDS ORDERED: ePHEDrine sulfate 50 MG/ML AMP IV PRN (14:54)
[2020-04-23] MEDS ORDERED: PROPOFOL IV EMULSION 10 MG/ML 20 ML VIAL IV ONE (15:36)
[2020-04-23] MEDS ORDERED: GLYCOPYRROLATE 0.2 MG/ML VIAL ONE (15:36)
[2020-04-23] MEDS ORDERED: ONDANSETRON INJ 2 MG/ML 2 ML VIAL ONE (15:36)
[2020-04-23] MEDS ORDERED: LIDOCAINE HCL 2% 2 ML VIAL/AMP(20MG/ML) INFIL ONE (15:36)
--- NOTE | 2020-04-23 16:52 | Post Operative Brief Note ---
PG Immediate Post Op with CF Date of Surgery April 23, 2020 Pre & Post Diagnosis Operation Date: 04/23/20 14:20 Pre-Op Diagnosis: Left Knee Pain; Degenerative Joint Disease Post-Op Diagnosis: Left Knee Pain; Degenerative Joint Disease I identified the patient and participated in the time-out.: Yes Procedure Operation Date: 04/23/20 14:20 Actual Procedures p Left Total Knee Arthroplasty(Left) - Alexis Gallagher MD Surgeon Alexis Gallagher MD Vp Corporate Development Kori, [facility] Estimated Blood Loss 50 Findings Consistent with Post-Op Diagnosis Fluids 1600 cc Specimens Specimen Description: A. Left Knee, Bone & Tissue Anesthesia Type Spinal MAC Complications none Disposition Accompanied Patient To Recovery: No Disposition: Recovery Room
--- NOTE | 2020-04-23 17:11 | XRay Report ---
XR knee LT 1 or 2V routine CLINICAL HISTORY: Postop examination COMPARISON: 11/21/2019 DISCUSSION: There are postsurgical changes of a total left knee arthroplasty and patellar resurfacing . The femoral tibial components appear well seated. There are overlying skin jorden. There is gas pr esent within the soft tissues consistent with recent surgery. IMPRESSION: Postsurgical changes of a total left knee arthroplasty. ACT 112: Negative or not required by law. Electronically signed by: Mynor Albert M.D. 04/23/2020 5:10 PM
--- NOTE | 2020-04-23 17:22 | Anesthesiology Progress Note ---
Date of Service April 23, 2020 Anesthesia Post Procedure Vital Signs Vital Signs: Temp Pulse Resp BP BP Pulse Ox 04/23/20 17:15 85 14 130/73 97 04/23/20 17:05 93 H 14 126/74 96 04/23/20 16:55 36.3 C L 109 H 17 117/65 98 04/23/20 13:25 77 20 160/95 H 97 04/23/20 12:43 37 C 78 16 147/95 H 96 Transfer of Care Handoff Completed per policy Notes Mental Status: alert / awake / arousable and participated in evaluation Nausea / Vomiting: adequately controlled Pain: adequately controlled Airway Patency, RR, SpO2: stable & adequate BP & HR: stable & adequate Hydration State: stable & adequate Neuraxial Anesthesia: was administered and sensory block is resolving Anesthetic Complications: no major complications apparent and Pt Satisfied with anesthetic care
[2020-04-23] MEDS: SODIUM CHLORIDE 0.9% 1000ML 1,000 ML IV SCH (18:20)
--- NOTE | 2020-04-23 18:20 | Operative Report ---
Post Operative Report Pre & Post Diagnosis Operation Date: 04/23/20 14:20 Pre-Op Diagnosis: Left Knee Pain; Degenerative Joint Disease Post-Op Diagnosis: Left Knee Pain; Degenerative Joint Disease I identified the patient and participated in the time-out.: Yes Procedure Operation Date: 04/23/20 14:20 Actual Procedures p Left Total Knee Arthroplasty(Left) - Alexis Gallagher MD Surgeon Alexis Gallagher MD Infectious Waste Technician Kori, PAC Estimated Blood Loss 50 Findings Consistent with Post-Op Diagnosis Operative findings revealed advanced left knee DJD with extensive grade 4 [id number] disease the medial femoral condyle medial till plateau. She had a varus deformity to her knee and about a 10 degree flexion contracture with a moderate-sized joint effusion. Fluids 1600 cc. Specimens Left knee sent for pathology. Drains None. Anesthesia Type Spinal MAC Complications none Disposition Accompanied Patient To Recovery: No Disposition: Recovery Room Indications Patient is a 59-year-old very active female is had a several history of bilateral knee pain discomfort. She underwent a right knee replacement 2 years ago is done well from this. Since then she developed progressive pain discomfort and recurrent swelling of the left knee. We have treated her extensively with aspirations and injections along with oral medicines which became less successful over time. X-rays show progressive loss of her medial joint space with [id number] disease. She elected proceed with surgical treatment. Description of Procedure Operative implants consist of: 1 Biomet Vanguard size 65 left posterior stabilized femoral component. 2. Biomet size 71 tibial tray. 3. 10 mm posterior stabilized polyethylene insert. 4. 31 x 8 all polypatella. The patient was taken the operating identified and placed on the operating table supine position but all contact areas were appropriately padded. IV antibiotics arrived by the anesthesia team. A spinal anesthetic and abductor canal block had been provided in the holding area. Gan catheter was placed in sterile fashion for the left thigh tip was then placed in the left lower extremities and prepped draped in usual sterile fashion. The left leg was elevated exsanguinated with use of an Esmarch interspace at 300 mmHg. An anterior posterior left knee was then performed to longitudinal incision centered over the patella. Sharp dissection was got through subcutaneous this down the extensor mechanism. A medial parapatellar arthrotomy incision was made. Some subperiosteal dissection was carried out medially. The fat pad was resected from each patella tendon. Lateral patellofemoral ligament was released. Patella was subluxated laterally and the knee was flexed. The osteophytes were taken off distal femur. The ACL and PCL were then released from distal femur and the tibia subluxate anteriorly. The external tibial alignment jig was then placed in the interface the tibia and adjusted 14 mm medially. Proximal tibial cut was made moved back a millimeter or 2 of bone from the most efficient aspect medial tibial plateau. Some osteophytes were taken off medial and posterior medially. Attention drawn the femur. The distal femur was entered the sharp drop with intramedullary canal was suction. A left 5 degree valgus cutting guide was placed. The distal femoral cutting block was pinned in place but distal femoral cut was made to take an additional 3 mm bone off distal femur. The patient did have a preoperative flexion contracture. The femur was then sized to a size 65. We did downsize this almost an entire size due to the narrow medial and lateral dimensions of the femur. The AP cutting block was pinned parallel to the epicondylar axis which was 4 degrees of external rotation. Anterior cut, anterior chamfer, posterior cut, posterior chamfer cuts were made. Box cutting guide was placed in a just slight lateral box cut was made. The knee was flexed. The remnants of the medial lateral menisci were excised. The osteophytes were taken off the posterior aspect of the femur. A trial femoral component was placed but the tibial tray was pinned in maximum external rotation and the drill and stem punch were used to create defect in proximal to for the tibial tray. The knee was then trialed. The 10 mm insert fit well in extension but just a little bit lax in flexion. I tried to 12 mm insert but it was just too tight in extension. Therefore we elected to except a little laxity in flexion and use the 10 insert. Attention drawn the patella. The patella was cleaned of all soft tissues. Patella thickness measured 23 mm in thickness was cut down to 14 but was sized to a size 31 patella. Locals were drilled for 31 patella. The lateral osteophyte is moved. Patella button was placed. Knee was taken through range of motion patella tracked nicely with no thumbs test. Attention drawn to placing the permanent components. All trial components were removed. A bone plug was placed in the distal femur limit blood loss put a double batch Pal[place]os G cement was mixed. A Biomet Vanguard size 65 left posterior stabilized femoral component, size 71 tibial tray, a 10 mm posterior stabilized polyethylene insert, and a 31 x 8 all polypatella were then cemented in place. The knee was brought out into full extension total cement hardened. Final cement check was then performed. Pericapsular tissues were injected with total 100 cc of combination of 20 cc of Exparel, 30 cc normal saline, 50 cc of quarter percent Marcaine with epinephrine. Patient did receive 1 g tranexamic acid per the turn was then let down for final tourniquet time 53 minutes. Hemostasis assured use electrocautery. The extensor mechanism closed with combination 1 PDS suture #1 Vicryl suture in [id number] fashion. The extensor mechanism checked found to be intact and the subcutaneous tissue was then closed with 2 Dexon suture in a buried interrupted fashion. Skin was closed skin jorden. Leg was then cleaned dried and sterile dressing composed Xeroform, 4 x 4's, sterile cast padding, Julito bandage were applied. Patient then transferred to the recovery room in stable condition. Patient tolerated procedure well and there were no complications. Tiago Sheikh, my physician credit assistant, was present for the entire procedure. His assistance was essential and required for appropriate patient positioning, prepping and draping, surgical exposure, performing the technical details of the operation, placement the implants, closure of the wound, and placement of the sterile bandage. I attest to the content of the Intraoperative Record and any orders documented therein. Any exceptions are noted below.
[2020-04-23] MEDS ORDERED: diphenhydrAMINE Capsule 25 MG CAP PO PRN (18:33)
[2020-04-23] MEDS ORDERED: bisacodyL 10 MG SUPP PR PRN (18:33)
[2020-04-23] MEDS ORDERED: METOCLOPRAMIDE HCL INJ 5 MG/ML 2 ML VIAL IV PRN (18:33)
[2020-04-23] MEDS ORDERED: ALUMINUM/MAGNESIUM SUSP 30 ML UDC PO PRN (18:33)
[2020-04-23] MEDS ORDERED: MAGNESIUM HYDROXIDE SUSP 30 ML UDC PO PRN (18:33)
[2020-04-23] MEDS ORDERED: HYDROmorphone INJ 0.5 MG/0.5 ML SYR IV PRN (18:33)
[2020-04-23] MEDS ORDERED: NALOXONE HCL 0.4 MG/1 ML VIAL/CARP IV PRN (18:33)
[2020-04-23] MEDS: Scopolamine CHECK PATCH PLACEMENT SCH ×2 (18:35→23:52)
[2020-04-23] MEDS: FERROUS GLUCONATE 324 MG TAB PO SCH (20:06)
[2020-04-23] MEDS: amLODIPine BESYLATE 5 MG TAB PO SCH (20:30)
[2020-04-23] MEDS: ASPIRIN 81 MG ECTAB PO SCH (20:30)
[2020-04-23] MEDS: KETOROLAC 30 MG/ML VIAL IV SCH (20:30)
[2020-04-23] MEDS: DOCUSATE SODIUM 100 MG CAP PO SCH (20:30)
[2020-04-23] MEDS: SENNA 8.6 MG TAB PO SCH (20:30)
[2020-04-23] MEDS: oxyCODONE HCL IR 5 MG TAB (IMMEDIATE RELEASE) PO PRN (20:31)
[2020-04-23] MEDS: TAPENTADOL HCL ER 50 MG TABCR PO SCH (20:31)
[2020-04-23] MEDS: ACETAMINOPHEN 500 MG TAB PO SCH (20:31)
[2020-04-23] MEDS: ceFAZolin 2000MG 2,000 MG/15 ML SYR IV SCH (22:18)
[2020-04-23] MEDS ORDERED: TRANEXAMIC ACID / 0.7% NACL 1,000 MG/100 ML BAG IV SCH (23:00)
[2020-04-24] MEDS: KETOROLAC 30 MG/ML VIAL IV SCH ×4 (02:13→20:01)
[2020-04-24] MEDS: oxyCODONE HCL IR 5 MG TAB (IMMEDIATE RELEASE) PO PRN ×3 (05:53→21:59)
[2020-04-24] MEDS: ACETAMINOPHEN 500 MG TAB PO SCH ×3 (05:53→20:58)
[2020-04-24] MEDS: ceFAZolin 2000MG 2,000 MG/15 ML SYR IV SCH (05:54)
[2020-04-24 06:03] LABS: Hematocrit (blood only) 34.4 % (37-47); Hemoglobin 11.4 g/dL (12.0-16.0); Mean Corpuscular Hemoglobin 32.9 pg (25-34); Mean Corpuscular Hgb Conc 33.1 g/dL (32-36); Mean Corpuscular Volume 99.4 fL (80-100); Mean Platelet Volume 9.8 fL (7.4-10.4); Platelet Count 161 K/uL (130-400); RDW Coefficient of Variation 12.4 % (11.5-14.5); RDW Standard Deviation 44.5 fL (36.4-46.3); Red Blood Count 3.46 M/uL (4.2-5.4); White Blood Count 4.41 K/uL (4.8-10.8)
[2020-04-24] MEDS: SODIUM CHLORIDE 0.9% 1000ML 1,000 ML IV SCH (06:20)
[2020-04-24 06:44] LABS: BUN Creatinine Ratio 13.3 (10-20); Calcium 8.7 mg/dl (8.5-10.1); Est GFR (African American) 97.3; Est GFR (Non-African American) 83.9; Potassium 3.9 mmol/L (3.5-5.1)
--- NOTE | 2020-04-24 08:04 | Progress Notes ---
DATE: 04/24/2020 SUBJECTIVE: A 59-year-old female postop day 1 from a left knee replacement. She is doing pretty well. Pain has been reasonable. Just took some pain medicine. Denies any chest pain or shortness of breath. Not feeling dizzy or lightheaded. OBJECTIVE: VITAL SIGNS: Temperature 36.9. Vital signs stable. GENERAL: Shows a pleasant elderly female. She is lying in bed, looks reasonably comfortable. EXTREMITIES: Examination of the left leg reveals the leg to be well aligned. Dressing is clean, dry and intact. She can dorsiflex and plantarflex her foot appropriately. She can do a straight leg raise. LABORATORY DATA: Hemoglobin 11.4. Hematocrit 34.4. White cell count 4.41. Electrolytes are stable. ASSESSMENT: A 59-year-old female postop day 1 from left knee replacement, doing pretty well. Pain seems to be controlled. PLAN: 1. DVT prophylaxis including thigh-high TEDs, SCDs, and aspirin twice a day. 2. PT/OT. Weight bear as tolerated. Left total knee protocol. 3. Pain control, doing okay with current pain regimen. 4. Disposition: She is planning to be discharged to home and she is going to do outpatient therapy once medically recovered and stable.
[2020-04-24] MEDS: Scopolamine CHECK PATCH PLACEMENT SCH ×3 (08:45→23:47)
[2020-04-24] MEDS: MULTIVITAMIN TAB PO SCH (08:46)
[2020-04-24] MEDS: DOCUSATE SODIUM 100 MG CAP PO SCH ×2 (08:46→20:59)
[2020-04-24] MEDS: FERROUS GLUCONATE 324 MG TAB PO SCH ×2 (08:46→17:40)
[2020-04-24] MEDS: ASPIRIN 81 MG ECTAB PO SCH ×2 (08:46→20:58)
[2020-04-24] MEDS: TAPENTADOL HCL ER 50 MG TABCR PO SCH ×2 (08:57→20:58)
[2020-04-24] MEDS: SENNA 8.6 MG TAB PO SCH (20:58)
[2020-04-24] MEDS: amLODIPine BESYLATE 5 MG TAB PO SCH (20:59)
[2020-04-25] MEDS: KETOROLAC 30 MG/ML VIAL IV SCH ×2 (01:23→08:17)
[2020-04-25] MEDS: ACETAMINOPHEN 500 MG TAB PO SCH (05:17)
[2020-04-25 07:21] VITALS: BP 103/67; TEMP 98.6; O2SAT 95
[2020-04-25] MEDS: Scopolamine CHECK PATCH PLACEMENT SCH (08:16)
[2020-04-25] MEDS: ASPIRIN 81 MG ECTAB PO SCH (08:17)
[2020-04-25] MEDS: TAPENTADOL HCL ER 50 MG TABCR PO SCH (08:17)
[2020-04-25] MEDS: DOCUSATE SODIUM 100 MG CAP PO SCH (08:18)
[2020-04-25] MEDS: FERROUS GLUCONATE 324 MG TAB PO SCH (08:18)
[2020-04-25] MEDS: MULTIVITAMIN TAB PO SCH (08:18)
--- NOTE | 2020-04-25 09:26 | Progress Notes ---
DATE: 04/25/2020 SUBJECTIVE: A 59-year-old female postop day 2 from left knee replacement. She is doing pretty well. Pain is controlled. No chest pain or shortness of breath. Therapy went well. Not feeling dizzy or lightheaded. OBJECTIVE: VITAL SIGNS: Temperature 37.0. Vital signs stable. GENERAL: Shows a pleasant, middle-aged female. She is lying in bed, looks pretty comfortable. EXTREMITIES: Examination of the left leg reveals the dressing to be clean, dry and intact. Leg is well aligned. She can dorsiflex and plantarflex her foot appropriately. She can do a straight leg raise. ASSESSMENT: A 59-year-old female postop day 2 from a left knee replacement, doing well. Pain is controlled. She is neurologically intact. PLAN: 1. DVT prophylaxis including thigh-high TEDs, SCDs, and aspirin twice a day. 2. PT/OT. Weight bear as tolerated. Left total knee protocol. 3. Pain control, doing well with current pain regimen. 4. Disposition: Plan to discharge to home and she is going to do outpatient therapy. Likely discharge later today.
[2020-04-25 10:51] VITALS: PULSE 83
[2020-04-25] MEDS: oxyCODONE HCL IR 5 MG TAB (IMMEDIATE RELEASE) PO PRN (12:21)
--- NOTE | 2020-04-28 13:40 | Discharge Summary ---
Date of Service April 28, 2020 Admission HPI Per Admitting Provider Documented in the H & P Admission Exam (Per Admitting) Constitutional Documented in the H & P Discharge Data Consultations 04/23/20 18:33 Consult Case Management - Discharge Planning Routine Procedures Performed Operation Date: 04/23/20 14:20 Actual Procedures p Left Total Knee Arthroplasty(Left) - Alexis Gallagher MD Hospital Course (1) Status post total left knee replacement: This patient is a 59 year old female admitted on 04/23/20 and underwent total knee arthroplasty. She tolerated the procedure well and there were no complications. Transferred to the PACU post op and later to the orthopedic floor for further care. She was given ancef for antibiotic prophylaxis. She was also given JENNIFER stockings, SCDs, and aspirin for DVT prophylaxis. Hemoglobin, hematocrit, and vital signs were monitored during her hospital stay and remained stable. Did not require any blood transfusions. There were no complications during her hospital stay. By post op day #2 the patient was tolerating a regular diet, pain was reasonably controlled with oral pain medicine, and she was participating in physical therapy. On post op day #2 the patient was discharged home and set up with home health care. She was given printed discharge instructions including prescriptions for extra strength tylenol, aspirin, and oxycodone. Continue physical therapy, weight bearing as tolerated. Continue JENNIFER stockings. Follow up approximately 2 weeks post op or sooner if there are problems or concerns. Coding Level of Care Code None Diagnoses Status post total left knee replacement Z96.652
== END 2020-04-25 13:15 | disposition home or self-care (01) ==
LOC: 3E 12:11 → ASU 12:11
DX: Z79.51 Long term (current) use of inhaled steroids; M17.12 Unilateral primary osteoarthritis, left knee; I10 Essential (primary) hypertension; Z96.651 Presence of right artificial knee joint; Z79.899 Other long term (current) drug therapy